=== PATIENT | female | born 1950 | race Caucasian/White ===

== ENCOUNTER 2018-12-16 05:48 | Inpatient (IN) | payer OTHER ==
[2018-12-16] MEDS ORDERED: oxyCODONE HCL 10 MG SUSTAINED ACTING TABLET PO ONE (06:17)
[2018-12-16] MEDS ORDERED: TRANEXAMIC ACID 1000 MG/10 ML VIAL IVPUSH ONE (06:17)
[2018-12-16] MEDS ORDERED: GABAPENTIN 300 MG CAPSULE (FP) PO ONE (06:17)
[2018-12-16] MEDS ORDERED: CEFAZOLIN 1 GM/D5W 1 GM/50 ML BAG IVPB ONE (06:17)
[2018-12-16] MEDS ORDERED: CELECOXIB 200 MG CAPSULE PO ONE (06:17)
[2018-12-16 06:56] VITALS: BMI 22.4
[2018-12-16] MEDS ORDERED: VANCOMYCIN 1,000 MG VIAL (RESTRICTED TO ID ONLY) ONE (07:18)
[2018-12-16] MEDS ORDERED: ceFAZolin SODIUM 1 GM VIAL ONE ×2 (07:18→08:19)
[2018-12-16] MEDS ORDERED: MIDAZOLAM HCL 2 MG/2 ML SINGLE DOSE VIAL ONE ×2 (07:32→07:57)
[2018-12-16] MEDS ORDERED: BUPIVACAINE LIPOSOME/PF (EXPAREL) 266 MG/20 ML VIAL ONE (07:32)
[2018-12-16] MEDS ORDERED: SODIUM CHLORIDE 0.9% P/F 10 ML VIAL IJ ONE (07:33)
[2018-12-16] MEDS ORDERED: BUPIVACAINE HCL/PF (5 MG/ML) 30 ML VIAL IJ ONE (07:33)
[2018-12-16] MEDS ORDERED: PROPOFOL 20 ML ONE ×3 (07:57)
[2018-12-16] MEDS ORDERED: SUCCINYLCHOLINE CHLORIDE 200 MG/10 ML VIAL ONE (07:57)
--- NOTE | 2018-12-16 08:04 | HP ---
Satellite [facility] - Chief Complaint Chief Complaint: right knee pain - Past Medical History Allergies/Adverse Reactions: Allergies Allergy/AdvReac Type Severity Reaction Status Date / Time No Known Drug Allergies Allergy Verified 12/16/18 06:51 - Current Medications Current Medications: Home Medications Medication Instructions Recorded Montelukast Na [Singulair -] 10 mg PO HS 12/10/12 Aspirin [Ecotrin] 81 mg PO DAILY 07/13/14 Alprazolam 0.25 mg PO HS 12/08/18 Ferrous Sulfate [Iron] 1 tab PO DAILY 12/08/18 Fluticasone Prop 0.05% Nasal 1 - 2 spray NS BID 12/08/18 [Flonase -] Fluticasone Propionate [Flovent 250 mcg IH HS 12/08/18 Diskus] Metformin HCl [Glucophage] 500 mg PO DAILY 12/08/18 Satellite Physical Exam - Physical Examination Vital Signs: Vital Signs Period Temp Pulse Resp BP Sys/Izaguirre Pulse Ox Last 24 Hr 98.2 F 64 16 115/66 99 General Appearance: Well Nourished, Well Developed, Alert & Oriented x3 ENT: Clear Lung: Normal air movement Heart: Regular rate & rhythm Extremities: Other (right knee- +swelling, + ttp, decr rom, nvi, xrays show grade 4 tricompartmental djd) Neurological: Intact, Alert, Oriented Satellite Impression/Plan - Impression/Plan Impression: right knee djd Operative Procedure: right sabra tkr Date to be Performed: 12/16/18
[2018-12-16] MEDS ORDERED: ONDANSETRON 4 MG/2 ML VIAL IVPUSH PRN ×2 (08:07→10:16)
[2018-12-16] MEDS ORDERED: MAGNESIUM HYDROX 2400MG/30ML ORAL SUSPENSION 30 ML CUP PO PRN (08:07)
[2018-12-16] MEDS ORDERED: MAG HYDROX/AL HYDROX/SIMETH 30 ML UNIT-DOSE CUP PO PRN (08:07)
[2018-12-16] MEDS ORDERED: ePHEDrine SULFATE 50 MG/1 ML AMPULE ONE (08:14)
[2018-12-16] MEDS ORDERED: LACTATED RINGERS SOLUTION 1,000 ML IV SCH (08:15)
[2018-12-16] MEDS ORDERED: TRANEXAMIC ACID 1000 MG/10 ML VIAL ONE (08:19)
[2018-12-16] MEDS ORDERED: ONDANSETRON 4 MG/2 ML VIAL ONE (08:19)
[2018-12-16] MEDS ORDERED: DEXAMETHASONE SOD PHOSPHATE 4 MG/1 ML VIAL ONE (08:19)
[2018-12-16] MEDS ORDERED: VANCOMYCIN 1,000 MG VIAL (RESTRICTED TO ID ONLY) IVPB ONE (09:25)
[2018-12-16] MEDS ORDERED: FLUTICASONE PROP 0.05% 16 GM NASAL SPRAY NS SCH (10:00)
[2018-12-16] MEDS ORDERED: FERROUS SO4 325 MG TABLET (FP) PO SCH (10:00)
--- NOTE | 2018-12-16 10:04 | OP ---
Operative Note - Note: Operative Date: 12/16/18 (avel) Pre-Operative Diagnosis: right knee djd Operation: right sabra tkr Post-Operative Diagnosis: Same as Pre-op Surgeon: Sebastian [facility] [employer] [facility] Department Chair: Ben Oropeza Anesthesiologist/ATTENDING PATHOLOGIST: Jeremias Leong Anesthesia: Spinal, Local Specimens Removed: bone fragments Estimated Blood Loss (mls): 100 Operative Report Dictated: Yes
[2018-12-16] MEDS ORDERED: PROMETHAZINE HCL 25 MG/1 ML VIAL IVPUSH PRN (10:16)
[2018-12-16] MEDS ORDERED: ACETAMINOPHEN 325 MG TABLET (FP) PO SCH (10:30)
[2018-12-16] MEDS: INSULIN SLIDING SCALE (NOVOLOG) 1 VIAL SQ SCH ×3 (11:00→21:45)
[2018-12-16] MEDS: SENNOSIDES/DOCUSATE COMBO (SENNA PLUS) TABLET (UD) PO SCH ×2 (14:19→21:40)
[2018-12-16] MEDS: PANTOPRAZOLE 40 MG TABLET (FP) PO SCH (14:21)
[2018-12-16] MEDS: MULTIVITAMINS (DAILY MVI) TABLET (FP) PO SCH (14:21)
[2018-12-16] MEDS: CEFAZOLIN 1 GM/D5W 1 GM/50 ML BAG IVPB SCH ×2 (15:57→23:59)
[2018-12-16] MEDS: oxyCODONE HCL 5 MG TABLET PO PRN (16:55)
[2018-12-16] MEDS: ACETAMINOPHEN 325 MG TABLET (FP) PO SCH (17:14)
--- NOTE | 2018-12-16 18:35 | PN ---
Progress Note, Physician Chief Complaint: S/P RIGHT KNE REPLACEMENT JONI H/O ANXIETY D/O, DM, ASTHMA, 0A. AWAKE ALERT NO DISTRESS - Current Medication List Current Medications: Active Medications Acetaminophen (Tylenol -) 650 mg PO Q6H [facility] Stop: 12/19/18 17:59 Last Admin: 12/16/18 17:14 Dose: 650 mg Al Hydroxide/Mg Hydroxide (Mylanta Oral Suspension -) 30 ml PO Q4H PRN PRN Reason: DYSPEPSIA Alprazolam (Xanax -) 0.25 mg PO HS [facility] Aspirin (Asa -) 325 mg PO DAILY@0800 [facility] Fentanyl (Sublimaze Injection -) 50 mcg IVPUSH [id number] PRN PRN Reason: PAIN-PACU ORDER X 4 DOSES ONLY Ferrous Sulfate (Feosol -) 325 mg PO DAILY [facility] Fluticasone Propionate (Flonase -) 1 - 2 spray NS BID [facility] Cefazolin Sodium (Ancef 1 Gm Premixed Ivpb -) 1 gm in 50 mls @ 100 mls/hr IVPB Q8H [facility] Stop: 12/17/18 00:29 Last Admin: 12/16/18 15:57 Dose: 100 mls/hr Lactated Ringer's (Lactated Ringers Solution) 1,000 mls @ 125 mls/hr IV ASDIR [facility] Stop: 12/17/18 06:00 Last Admin: 12/16/18 14:19 Dose: Not Given Insulin Aspart (Novolog Vial Sliding Scale -) 1 vial SQ [facility]; Protocol Last Admin: 12/16/18 17:13 Dose: 4 units Magnesium Hydroxide (Milk Of Magnesia -) 30 ml PO PRN PRN PRN Reason: CONSTIPATION Metformin HCl (Glucophage -) 500 mg PO ACBK [facility] Mometasone Furoate (Asmanex 220mcg -) 1 puff IH HS [facility] Montelukast Sodium (Singulair -) 10 mg PO HS [facility] Multivitamins/Minerals/Vitamin C (Tab-A-Vit -) 1 tab PO DAILY [facility] Last Admin: 12/16/18 14:21 Dose: Not Given Ondansetron HCl (Zofran Injection) 4 mg IVPUSH Q6H PRN PRN Reason: NAUSEA Ondansetron HCl (Zofran Injection) 4 mg IVPUSH Q6H PRN PRN Reason: NAUSEA AND/OR VOMITING Oxycodone HCl (Roxicodone -) 5 mg PO Q3H PRN PRN Reason: PAIN LEVEL 1-5 Oxycodone HCl (Roxicodone -) 10 mg PO Q3H PRN PRN Reason: PAIN LEVEL 6-10 Last Admin: 12/16/18 16:55 Dose: 10 mg Oxycodone HCl (Oxycontin -) 10 mg PO BID [facility] Stop: 12/19/18 10:17 Pantoprazole Sodium (Protonix -) 40 mg PO DAILY [facility] Last Admin: 12/16/18 14:21 Dose: Not Given Promethazine HCl (Phenergan Injection -) 12.5 mg IVPUSH Q6H PRN PRN Reason: NAUSEA-FOR RESCUE AFTER 15 MIN Senna/Docusate Sodium (Pericolace -) 2 tablet PO BID [facility] Last Admin: 12/16/18 14:19 Dose: Not Given - Objective Vital Signs: Vital Signs Temperature 97.7 F 12/16/18 12:00 Pulse Rate 83 12/16/18 12:00 Respiratory Rate 18 12/16/18 12:00 Blood Pressure 108/62 12/16/18 12:00 O2 Sat by Pulse Oximetry (%) 94 L 12/16/18 12:00 Constitutional: Yes: No Distress Eyes: Yes: WNL HENT: Yes: WNL Neck: Yes: WNL Cardiovascular: Yes: Regular Rate and Rhythm Respiratory: Yes: WNL Gastrointestinal: Yes: WNL Genitourinary: Yes: Other Musculoskeletal: Yes: Other Extremities: Yes: Other Peripheral Pulses WNL: Yes Integumentary: Yes: Other Wound/Incision: Yes: Dressing Dry and Intact (DRESSING RIGHT KNEE CLEAN NO DISCHARGE OR BLEED) ...Motor Strength: RLE Psychiatric: Yes: WNL Problem List - Problems (1) Asthma Code(s): J45.909 - UNSPECIFIED ASTHMA, UNCOMPLICATED (2) Hypertension Code(s): I10 - ESSENTIAL (PRIMARY) HYPERTENSION (3) Diabetes mellitus Code(s): E11.9 - TYPE 2 DIABETES MELLITUS WITHOUT COMPLICATIONS (4) Osteoarthritis Code(s): M19.90 - UNSPECIFIED OSTEOARTHRITIS, UNSPECIFIED SITE (5) Status post total right knee replacement Code(s): Z96.651 - PRESENCE OF RIGHT ARTIFICIAL KNEE JOINT Assessment/Plan S/P RIGHT KNEE REPLACEMENT JONI PAIN CONTROL DVT PROPHYLAXIS PT/ORTHOPEDIC F/U NON-WEIGHT BEARING UNTIL CLEARED BY ORTHOPEDICS. NEBS/02 SUPPORT STABLE ASTHMA BGM CHECKS CHECK LABS
[2018-12-16] MEDS ORDERED: ALBUTEROL SO4 2.5/IPRATROPIUM 0.5 INH SOL 3 ML VIAL.NEB. NEB PRN (18:43)
[2018-12-16] MEDS ORDERED: PT OWN MED DRAWER 7, Y5N ONE (21:18)
--- NOTE | 2018-12-16 21:32 | SPEC ---
DATE OF OPERATION: 12/16/2018 PREOPERATIVE DIAGNOSIS: Degenerative joint disease, right knee. POSTOPERATIVE DIAGNOSIS: Degenerative joint disease, right knee. PROCEDURE: Right total knee replacement with robotic-assisted navigation (Makoplasty). SURGICAL ATTENDING: Sebastian Solis M.D. SSIS DEVELOPER: Evelina Villarreal ANESTHESIA: Regional and spinal. CLOSURE: A Triathlon cemented knee system with a 3 femur, 3 tibia, 13 polyethylene, 29 patella, number 1 Vicryl fascia, 0 and 2-0 subcutaneous, 3-0 Monocryl subcuticular with skin glue for skin, 4-0 undyed Vicryl for pin sites. ESTIMATED BLOOD LOSS: Less than 100 mL. COMPLICATIONS: None. CONDITION: To recovery room in stable condition. DESCRIPTION OF OPERATIVE PROCEDURE: Patient was taken to the operating room on December 16, 2018. Regional and general anesthesia was administered by the anesthesiologist. IV Kefzol and TXA were administered by the anesthesiologist. Well-padded pneumatic tourniquet was placed on the proximal thigh. The right lower extremity was prepped and draped in the usual sterile fashion. The leg was exsanguinated with an Esmarch bandage, and tourniquet was inflated to 275 mmHg. A 12 to 15-cm longitudinal midline incision was incised while centered over the patella. The dissection was carried down to the level of the extensor mechanism with sufficient flaps made to adequately perform the procedure. A medial parapatellar arthrotomy was then performed. We made a cuff of tissue on the patella for later closure. The patella was inverted, the knee was flexed up. The fat pad was excised. The subperiosteal dissection was on the anteromedial proximal tibia around towards the direction of the MCL. The ACL and the PCL were transected and debrided. The meniscal remnants of the medial and lateral meniscus were debrided and removed. This allowed the knee to be able to "be brought forward." The checkpoints were malleted into the tibia and into the femur. Two threaded pins were drilled anteroposteriorly proximal to the knee through the previous incision, through the anterior cortex, then just engaging the posterior cortex. To these pins was assembled the femoral navigation array. One handbreadth below the tibial tubercle, 2 stab incisions were used to drill 2 threaded pins in parallel fashion into the tibia, again through the anterior cortex and just engaging the posterior cortex. To these pins was fastened the tibial arrays. The knee was then registered with the navigation device with center of rotation of the hip, medial and lateral malleoli, both checkpoints, and multiple points on both the femur and the tibia to ensure excellent registration. The navigation device was directed off the "pop of the bubbles" on both the femur and the tibia. The navigation passed within less than 0.5 mm to plan. The knee was then thoroughly inspected to remove all osteophytes both medially, laterally, and on the femur and the tibia, and whatever osteophytes were available for dissection. The knee was then taken to extension and to flexion, and stressed in both varus and valgus to assess flexion gaps. The virtual position of the components on the navigation device were then manipulated to optimize the position and to ensure equal gaps in both flexion and extension, and both medially and laterally. The robot was then brought into the field and was registered. The cuts were then made both on the femur and on the tibia as to plan. All osteophytes posteriorly were then removed as well. The gaps were then measured again in flexion and extension to be equal in both flexion and extension and medial and laterally. The femoral notch was then made, as we were doing a posterior stabilizing component, with the appropriate sized box. Trial reduction of the femur achieved excellent [id number] fit. A tibial baseplate of appropriate polyethylene thickness was "floated in the knee." It was ensured to be in the excellent position by navigation devices and was pinned in place. The knee was taken through a range of motion, and found to have excellent stability throughout flexion and extension. The patella was calibrated for thickness and osteotomized down to the appropriate level. The appropriate lollipop was used to drill the lug holes in the patella and the trial button was applied. The knee was taken through a range of motion and found to have excellent tracking of the patella, and patella from full extension to full flexion. Trial components were removed, the keel was punched and drilled, and a sclerotic bone on the tibia was drilled to help with cement interdigitation. The knee was thoroughly irrigated with the pulse antibiotic derrick builder. The real components were then cemented in using monitored arrangement cement techniques with antibiotic cement, and pressurization and extension. After the cement was hardened, the knee was thoroughly inspected to remove any extra cement. The real polyethylene component was then clipped into place. Range of motion, stability, and tracking were as described earlier. The checkpoints and the pins were removed. The knee was thoroughly irrigated with antibiotic irrigation. Vancomycin powder was placed into the knee for antibiotic prophylaxis. The medial parapatellar arthrotomy was then closed using number 1 Vicryl interrupted suture. After closure of the deep layer, the knee was taken through a range of motion, and found to have excellent stability of the patella with no dislocation and no undue tension on the repair. The subcutaneous was pulse antibiotic irrigated, and was then closed with 2-0 Vicryl, 3-0 Monocryl subcuticular with the skin glue for the skin. The distal tibial pin site was irrigated thoroughly as well and then closed with 4-0 undyed Vicryl. A sterile Aquacel dressing was applied, followed by a Mckenzie dressing. Tourniquet was deflated. Total tourniquet time was approximately 75 minutes. No complications. Patient was awakened from anesthesia and transferred to recovery room in stable condition. Postoperative x-rays revealed excellent position of the components. Maura WORKMAN/[id number]
[2018-12-16] MEDS: MONTELUKAST NA 10 MG TABLET PO SCH (21:39)
[2018-12-16] MEDS: ALPRAZolam 0.25 MG TABLET PO SCH (21:40)
[2018-12-16] MEDS: oxyCODONE HCL 10 MG SUSTAINED ACTING TABLET PO SCH (21:40)
[2018-12-16] MEDS: FLUTICASONE PROP 0.05% 16 GM NASAL SPRAY NS SCH (21:42)
[2018-12-16] MEDS: MOMETASONE FUROATE 220 MCG/IH INHALER IH SCH (21:43)
[2018-12-16] MEDS ORDERED: PATIENT'S OWN MEDICATION (NON-FORMULARY) (Fluticasone Propionate [Flovent Diskus] 250 MCG) IH SCH (22:00)
[2018-12-17] MEDS: ACETAMINOPHEN 325 MG TABLET (FP) PO SCH ×5 (00:05→23:10)
[2018-12-17] MEDS: oxyCODONE HCL 5 MG TABLET PO PRN ×4 (06:58→19:51)
[2018-12-17] MEDS: INSULIN SLIDING SCALE (NOVOLOG) 1 VIAL SQ SCH ×4 (07:06→21:38)
[2018-12-17] MEDS: metFORMIN HCL 500 MG TABLET (FP) PO SCH (07:06)
[2018-12-17 07:52] LABS: HEMATOCRIT 35.5 % (32.4-45.2); HEMOGLOBIN 11.8 GM/dl (10.7-15.3); MCHC 33.3 g/dl (32.0-36.0); MEAN CELL VOLUME 96.2 fl (80-96); MEAN PLT VOLUME 9.3 fl (7.5-11.1); PLATELET COUNT 264 K/MM3 (134-434); RBC 3.69 M/mm3 (3.60-5.2); RDW 12.6 % (11.6-15.6); WHITE BLOOD COUNT 11.2 K/mm3 (4.0-10.8)
--- NOTE | 2018-12-17 08:03 | PN ---
Progress Note, Physician - Current Medication List Current Medications: Active Medications Acetaminophen (Tylenol -) 650 mg PO Q6H [facility] Stop: 12/19/18 17:59 Last Admin: 12/17/18 06:58 Dose: 650 mg Al Hydroxide/Mg Hydroxide (Mylanta Oral Suspension -) 30 ml PO Q4H PRN PRN Reason: DYSPEPSIA Albuterol/Ipratropium (Duoneb -) 1 amp NEB Q6H PRN PRN Reason: SHORTNESS OF BREATH Alprazolam (Xanax -) 0.25 mg PO [facility] Last Admin: 12/16/18 21:40 Dose: 0.25 mg Aspirin (Asa -) 325 mg PO DAILY@0800 [facility] Fentanyl (Sublimaze Injection -) 50 mcg IVPUSH [id number] PRN PRN Reason: PAIN-PACU ORDER X 4 DOSES ONLY Ferrous Sulfate (Feosol -) 325 mg PO DAILY [facility] Fluticasone Propionate (Flonase -) 1 - 2 spray NS BID [facility] Last Admin: 12/16/18 21:42 Dose: 2 spray Insulin Aspart (Novolog Vial Sliding Scale -) 1 vial SQ [facility]; Protocol Last Admin: 12/17/18 07:06 Dose: Not Given Magnesium Hydroxide (Milk Of Magnesia -) 30 ml PO PRN PRN PRN Reason: CONSTIPATION Metformin HCl (Glucophage -) 500 mg PO ACBK [facility] Last Admin: 12/17/18 07:06 Dose: 500 mg Mometasone Furoate (Asmanex 220mcg -) 1 puff IH [facility] Last Admin: 12/16/18 21:43 Dose: 1 puff Montelukast Sodium (Singulair -) 10 mg PO [facility] Last Admin: 12/16/18 21:39 Dose: 10 mg Multivitamins/Minerals/Vitamin C (Tab-A-Vit -) 1 tab PO DAILY [facility] Last Admin: 12/16/18 14:21 Dose: Not Given Ondansetron HCl (Zofran Injection) 4 mg IVPUSH Q6H PRN PRN Reason: NAUSEA Ondansetron HCl (Zofran Injection) 4 mg IVPUSH Q6H PRN PRN Reason: NAUSEA AND/OR VOMITING Oxycodone HCl (Roxicodone -) 5 mg PO Q3H PRN PRN Reason: PAIN LEVEL 1-5 Oxycodone HCl (Roxicodone -) 10 mg PO Q3H PRN PRN Reason: PAIN LEVEL 6-10 Last Admin: 12/17/18 06:58 Dose: 10 mg Oxycodone HCl (Oxycontin -) 10 mg PO BID [facility] Stop: 12/19/18 10:17 Last Admin: 12/16/18 21:40 Dose: 10 mg Pantoprazole Sodium (Protonix -) 40 mg PO DAILY [facility] Last Admin: 12/16/18 14:21 Dose: Not Given Promethazine HCl (Phenergan Injection -) 12.5 mg IVPUSH Q6H PRN PRN Reason: NAUSEA-FOR RESCUE AFTER 15 MIN Senna/Docusate Sodium (Pericolace -) 2 tablet PO BID [facility] Last Admin: 12/16/18 21:40 Dose: 2 tablet - Objective Vital Signs: Vital Signs Temperature 97.9 F 12/17/18 04:00 Pulse Rate 65 12/17/18 04:00 Respiratory Rate 12/17/18 04:00 Blood Pressure 115/53 L 12/17/18 04:00 O2 Sat by Pulse Oximetry (%) 96 12/17/18 06:38 Cardiovascular: Yes: Regular Rate and Rhythm Respiratory: Yes: Regular, CTA Bilaterally Gastrointestinal: Yes: Normal Bowel Sounds, Soft Wound/Incision: Yes: Dressing Dry and Intact Problem List - Problems (1) Asthma Assessment/Plan: controlled Code(s): J45.909 - UNSPECIFIED ASTHMA, UNCOMPLICATED (2) Diabetes mellitus Assessment/Plan: same meds monitor Code(s): E11.9 - TYPE 2 DIABETES MELLITUS WITHOUT COMPLICATIONS (3) Hypertension Assessment/Plan: same meds Vital Signs Period Temp Pulse Resp BP Sys/Izaguirre Pulse Ox Last 24 Hr 97.5 F-98.4 F 65-83 12-19 93-115/50-62 94-98 Code(s): I10 - ESSENTIAL (PRIMARY) HYPERTENSION (4) Status post total right knee replacement Assessment/Plan: per ortho pain control Code(s): Z96.651 - PRESENCE OF RIGHT ARTIFICIAL KNEE JOINT
[2018-12-17 08:19] LABS: ALBUMIN 3.2 g/dl (3.4-5.0); BILIRUBIN,TOTAL 0.8 mg/dl (0.2-1); CALCIUM 9.2 mg/dl (8.5-10); CREATININE 0.5 mg/dl (0.55-1.3); MAGNESIUM 2.1 mg/dL (1.8-2.4); PHOSPHOROUS 3.8 mg/dl (2.5-4.9); POTASSIUM 4.3 mmol/L (3.5-5.1); TOT PROT 5.7 g/dl (6.4-8.2)
[2018-12-17] MEDS ORDERED: PT OWN MED DRAWER 7, Y5N ONE (09:47)
[2018-12-17] MEDS: ASPIRIN 325 MG TABLET PO SCH (09:56)
[2018-12-17] MEDS: MULTIVITAMINS (DAILY MVI) TABLET (FP) PO SCH (09:59)
[2018-12-17] MEDS: SENNOSIDES/DOCUSATE COMBO (SENNA PLUS) TABLET (UD) PO SCH ×2 (09:59→21:34)
[2018-12-17] MEDS: FERROUS SO4 325 MG TABLET (FP) PO SCH (09:59)
[2018-12-17] MEDS: PANTOPRAZOLE 40 MG TABLET (FP) PO SCH (09:59)
[2018-12-17] MEDS: FLUTICASONE PROP 0.05% 16 GM NASAL SPRAY NS SCH ×2 (10:00→21:38)
[2018-12-17] MEDS: oxyCODONE HCL 10 MG SUSTAINED ACTING TABLET PO SCH ×2 (10:01→21:34)
--- NOTE | 2018-12-17 10:26 | PN ---
Progress Note (short form) - Note Progress Note: Ortho Pt seen and examined s/p right sabra tkr pod #1 Selected Entries 12/17/18 09:36 Temperature 97.8 F Pulse Rate 79 Respiratory 20 Rate Blood Pressure 102/55 L Laboratory Tests 12/17/18 07:20 WBC 11.2 H Hgb 11.8 Hct 35.5 Plt Count 264 dressing c/d/i, calf soft, nt rom 0-40, nvi a/p PT dvt ppx pain control d/c planning for rehab
--- NOTE | 2018-12-17 14:12 | PN ---
Progress Note (short form) - Note Progress Note: Anesthesia post op/Pain Pt seen and examined S:Alert and awake O: Vital Signs Temperature 97.8 F 12/17/18 09:36 Pulse Rate 79 12/17/18 09:36 Respiratory Rate 20 12/17/18 09:36 Blood Pressure 102/55 L 12/17/18 09:36 O2 Sat by Pulse Oximetry (%) 96 12/17/18 09:36 CBC, BMP 12/17/18 07:20 12/17/18 07:20 A/P: Current Active Problems Asthma (Acute) Diabetes mellitus (Acute) Hypertension (Acute) Osteoarthritis (Acute) Status post total right knee replacement (Acute) Doing well post op Continue current care Geovani García MD
[2018-12-17] MEDS: MONTELUKAST NA 10 MG TABLET PO SCH (21:34)
[2018-12-17] MEDS: ALPRAZolam 0.25 MG TABLET PO SCH (21:34)
[2018-12-17] MEDS: MOMETASONE FUROATE 220 MCG/IH INHALER IH SCH (21:38)
[2018-12-18] MEDS: INSULIN SLIDING SCALE (NOVOLOG) 1 VIAL SQ SCH ×3 (06:34→17:12)
[2018-12-18] MEDS: oxyCODONE HCL 5 MG TABLET PO PRN ×2 (06:39→21:50)
[2018-12-18] MEDS: ACETAMINOPHEN 325 MG TABLET (FP) PO SCH ×3 (06:40→18:06)
[2018-12-18] MEDS: metFORMIN HCL 500 MG TABLET (FP) PO SCH (06:40)
--- NOTE | 2018-12-18 07:44 | PN ---
Progress Note, Physician - Current Medication List Current Medications: Active Medications Acetaminophen (Tylenol -) 650 mg PO Q6H [facility] Stop: 12/19/18 17:59 Last Admin: 12/18/18 06:40 Dose: 650 mg Al Hydroxide/Mg Hydroxide (Mylanta Oral Suspension -) 30 ml PO Q4H PRN PRN Reason: DYSPEPSIA Albuterol/Ipratropium (Duoneb -) 1 amp NEB Q6H PRN PRN Reason: SHORTNESS OF BREATH Alprazolam (Xanax -) 0.25 mg PO [facility] Last Admin: 12/17/18 21:34 Dose: 0.25 mg Aspirin (Asa -) 325 mg PO DAILY@0800 [facility] Last Admin: 12/17/18 09:56 Dose: 325 mg Fentanyl (Sublimaze Injection -) 50 mcg IVPUSH [id number] PRN PRN Reason: PAIN-PACU ORDER X 4 DOSES ONLY Ferrous Sulfate (Feosol -) 325 mg PO DAILY [facility] Last Admin: 12/17/18 09:59 Dose: 325 mg Fluticasone Propionate (Flonase -) 1 - 2 spray NS BID [facility] Last Admin: 12/17/18 21:38 Dose: 2 spray Insulin Aspart (Novolog Vial Sliding Scale -) 1 vial SQ [facility]; Protocol Last Admin: 12/18/18 06:34 Dose: Not Given Magnesium Hydroxide (Milk Of Magnesia -) 30 ml PO PRN PRN PRN Reason: CONSTIPATION Metformin HCl (Glucophage -) 500 mg PO ACBK [facility] Last Admin: 12/18/18 06:40 Dose: 500 mg Mometasone Furoate (Asmanex 220mcg -) 1 puff IH [facility] Last Admin: 12/17/18 21:38 Dose: 1 puff Montelukast Sodium (Singulair -) 10 mg PO [facility] Last Admin: 12/17/18 21:34 Dose: 10 mg Multivitamins/Minerals/Vitamin C (Tab-A-Vit -) 1 tab PO DAILY [facility] Last Admin: 12/17/18 09:59 Dose: 1 tab Ondansetron HCl (Zofran Injection) 4 mg IVPUSH Q6H PRN PRN Reason: NAUSEA Ondansetron HCl (Zofran Injection) 4 mg IVPUSH Q6H PRN PRN Reason: NAUSEA AND/OR VOMITING Oxycodone HCl (Roxicodone -) 5 mg PO Q3H PRN PRN Reason: PAIN LEVEL 1-5 Last Admin: 12/17/18 13:40 Dose: 5 mg Oxycodone HCl (Roxicodone -) 10 mg PO Q3H PRN PRN Reason: PAIN LEVEL 6-10 Last Admin: 12/18/18 06:39 Dose: 10 mg Oxycodone HCl (Oxycontin -) 10 mg PO BID [facility] Stop: 12/19/18 10:17 Last Admin: 12/17/18 21:34 Dose: 10 mg Pantoprazole Sodium (Protonix -) 40 mg PO DAILY [facility] Last Admin: 12/17/18 09:59 Dose: 40 mg Promethazine HCl (Phenergan Injection -) 12.5 mg IVPUSH Q6H PRN PRN Reason: NAUSEA-FOR RESCUE AFTER 15 MIN Senna/Docusate Sodium (Pericolace -) 2 tablet PO BID [facility] Last Admin: 12/17/18 21:34 Dose: 2 tablet - Objective Vital Signs: Vital Signs Temperature 99.1 F 12/18/18 06:34 Pulse Rate 85 12/18/18 06:34 Respiratory Rate 18 12/18/18 06:34 Blood Pressure 104/57 L 12/18/18 06:34 O2 Sat by Pulse Oximetry (%) 97 12/18/18 06:34 Cardiovascular: Yes: Regular Rate and Rhythm Respiratory: Yes: Regular, CTA Bilaterally Gastrointestinal: Yes: Normal Bowel Sounds, Soft Wound/Incision: Yes: Dressing Dry and Intact Labs: CBC, BMP 12/17/18 07:20 Problem List - Problems (1) Asthma Assessment/Plan: controlled Code(s): J45.909 - UNSPECIFIED ASTHMA, UNCOMPLICATED (2) Diabetes mellitus Assessment/Plan: same meds monitor Code(s): E11.9 - TYPE 2 DIABETES MELLITUS WITHOUT COMPLICATIONS (3) Hypertension Assessment/Plan: same meds Vital Signs Period Temp Pulse Resp BP Sys/Izaguirre Pulse Ox Last 24 Hr 97.5 F-98.4 F 65-83 12-19 93-115/50-62 94-98 Code(s): I10 - ESSENTIAL (PRIMARY) HYPERTENSION (4) Status post total right knee replacement Assessment/Plan: per ortho pain control one dose of celebrex Code(s): Z96.651 - PRESENCE OF RIGHT ARTIFICIAL KNEE JOINT
[2018-12-18 08:07] LABS: HEMATOCRIT 35.4 % (32.4-45.2); MCH 32.6 pg (25.7-33.7); MEAN PLT VOLUME 9.8 fl (7.5-11.1); PLATELET COUNT 243 K/MM3 (134-434); RBC 3.69 M/mm3 (3.60-5.2); RDW 12.6 % (11.6-15.6); WHITE BLOOD COUNT 9.8 K/mm3 (4.0-10.8)
--- NOTE | 2018-12-18 08:24 | PN ---
Progress Note (short form) - Note Progress Note: Ortho Pt seen and examined s/p right sabra tkr pod #2 Selected Entries 12/18/18 06:34 Temperature 99.1 F Pulse Rate 85 Respiratory 18 Rate Blood Pressure 104/57 L Laboratory Tests 12/18/18 07:05 WBC 9.8 Hgb 12.0 Hct 35.4 Plt Count 243 dressing c/d/i, calf soft, nt rom 0-60, nvi a/p PT dvt ppx pain control d/c planning for rehab
[2018-12-18] MEDS: ASPIRIN 325 MG TABLET PO SCH (08:30)
[2018-12-18] MEDS ORDERED: CELECOXIB 200 MG CAPSULE PO ONE (09:30)
[2018-12-18] MEDS: FERROUS SO4 325 MG TABLET (FP) PO SCH (09:42)
[2018-12-18] MEDS: SENNOSIDES/DOCUSATE COMBO (SENNA PLUS) TABLET (UD) PO SCH ×2 (09:43→21:52)
[2018-12-18] MEDS: FLUTICASONE PROP 0.05% 16 GM NASAL SPRAY NS SCH ×2 (09:43→21:53)
[2018-12-18] MEDS: PANTOPRAZOLE 40 MG TABLET (FP) PO SCH (09:43)
[2018-12-18] MEDS: MULTIVITAMINS (DAILY MVI) TABLET (FP) PO SCH (09:43)
[2018-12-18] MEDS: oxyCODONE HCL 10 MG SUSTAINED ACTING TABLET PO SCH ×2 (10:15→21:51)
[2018-12-18] MEDS: ALPRAZolam 0.25 MG TABLET PO SCH (21:51)
[2018-12-18] MEDS: MONTELUKAST NA 10 MG TABLET PO SCH (21:52)
[2018-12-18] MEDS: MOMETASONE FUROATE 220 MCG/IH INHALER IH SCH (21:53)
[2018-12-19] MEDS: INSULIN SLIDING SCALE (NOVOLOG) 1 VIAL SQ SCH ×3 (01:31→13:34)
[2018-12-19] MEDS: ACETAMINOPHEN 325 MG TABLET (FP) PO SCH ×2 (01:32→06:51)
[2018-12-19] MEDS: metFORMIN HCL 500 MG TABLET (FP) PO SCH (06:51)
[2018-12-19] MEDS ORDERED: PT OWN MED DRAWER 7, Y5N ONE ×2 (08:38→09:34)
--- NOTE | 2018-12-19 08:54 | DS ---
Physical Examination Vital Signs: Vital Signs Temperature 99.4 F 12/19/18 06:27 Pulse Rate 83 12/19/18 06:27 Respiratory Rate 16 12/19/18 08:21 Blood Pressure 97/56 L 12/19/18 06:27 O2 Sat by Pulse Oximetry (%) 98 12/19/18 08:21 Cardiovascular: Yes: Regular Rate and Rhythm Respiratory: Yes: Regular, CTA Bilaterally Gastrointestinal: Yes: Normal Bowel Sounds, Soft Labs: CBC, BMP 12/18/18 07:05 12/17/18 07:20 Discharge Summary Reason For Visit: OSTEOARTHRITIS Current Active Problems Asthma (Acute) Diabetes mellitus (Acute) Hypertension (Acute) Osteoarthritis (Acute) Status post total right knee replacement (Acute) Hospital Course: Problems (1) Asthma Assessment/Plan: controlled Code(s): J45.909 - UNSPECIFIED ASTHMA, UNCOMPLICATED (2) Diabetes mellitus Assessment/Plan: same meds monitor Code(s): E11.9 - TYPE 2 DIABETES MELLITUS WITHOUT COMPLICATIONS (3) Hypertension Assessment/Plan: low will monitor Vital Signs Period Temp Pulse Resp BP Sys/Izaguirre Pulse Ox Last 24 Hr 97.5 F-98.4 F 65-83 12-19 93-115/50-62 94-98 Code(s): I10 - ESSENTIAL (PRIMARY) HYPERTENSION (4) Status post total right knee replacement Assessment/Plan: per ortho pain control one dose of celebrex Code(s): Z96.651 - PRESENCE OF RIGHT ARTIFICIAL KNEE JOINT Condition: Good - Instructions Diet, Activity, Other Instructions: Post-op Instructions-Total Knee Replacement Call the office for a follow-up appointment in 1 week - [phone] Aspirin 325mg daily for 6 weeks. Pain medication was sent into your pharmacy. Apply Graduated Compression Stockings (TEDs) to both lower extremities- remove daily for hygiene ONLY Apply Sequential Compression Device (SCDs) to both Lower extremities remove for PT and hygiene ONLY Apply cold packs to affected area for 15 minutes every 2 hours. Physical Therapist will come to your home for the first 5 days. You will be set up with outpatient PT at your first post-operative visit. Patient may ambulate as tolerated-encourage self care (at least every 2-3 hours while awake) with walker or cane Maintain Aquacel (waterproof) dressing to operative wound (will be removed by surgeon at first office visit) Shower with Aquacel dressing in place-if Aquacel integrity compromised, remove and apply dry sterile dressing and notify Orthopedist. DO NOT SHOWER unless Orthopedists approves without Aquacel dressing CONTACT THE OFFICE FOR ANY CHANGE IN YOUR CONDITION (for example-fever greater than 102 degrees, excessive bleeding from operative site, purulent drainage, severe swelling or pain) GO TO THE EMERGENCY ROOM IF THERE IS A MEDICAL EMERGENCY Knee Precautions: * Keep a rolled towel under affected heel while in bed or chair (to keep knee in extension) * Keep affected leg elevated except during mealtimes * DO NOT PLACE PILLOW UNDER AFFECTED KNEE * If you have any questions, please do not hesitate to call the office - [phone]. Referrals: Sebastian Solis MD [Staff Physician] - Disposition: VNS/HOME HEALTH CARE - Home Medications Comprehensive Discharge Medication List: Ambulatory Orders Montelukast Na [Singulair -] 10 mg PO HS 12/10/12 Alprazolam 0.25 mg PO HS 12/08/18 Ferrous Sulfate [Iron] 1 tab PO DAILY 12/08/18 Fluticasone Prop 0.05% Nasal [Flonase -] 1 - 2 spray NS BID 12/08/18 Fluticasone Propionate [Flovent Diskus] 250 mcg IH HS 12/08/18 Metformin HCl [Glucophage] 500 mg PO DAILY 12/08/18 Aspirin [ASA -] 325 mg PO DAILY@0800 tablet 12/16/18 Oxycodone HCl/Acetaminophen [Percocet 5-325 mg Tablet -] 1 - 2 tab PO Q6H #50 tab MDD 8 12/16/18
[2018-12-19] MEDS: ASPIRIN 325 MG TABLET PO SCH (08:58)
[2018-12-19] MEDS: oxyCODONE HCL 5 MG TABLET PO PRN (08:58)
[2018-12-19] MEDS: FERROUS SO4 325 MG TABLET (FP) PO SCH (09:50)
[2018-12-19] MEDS: oxyCODONE HCL 10 MG SUSTAINED ACTING TABLET PO SCH (09:50)
[2018-12-19] MEDS: PANTOPRAZOLE 40 MG TABLET (FP) PO SCH (09:50)
[2018-12-19] MEDS: SENNOSIDES/DOCUSATE COMBO (SENNA PLUS) TABLET (UD) PO SCH (09:50)
[2018-12-19] MEDS: MULTIVITAMINS (DAILY MVI) TABLET (FP) PO SCH (09:50)
[2018-12-19] MEDS: FLUTICASONE PROP 0.05% 16 GM NASAL SPRAY NS SCH (10:00)
[2018-12-19 10:04] LABS: BASO % 0.4 % (0-2.0); EOS % 1.7 % (0-4.5); HEMATOCRIT 35.4 % (32.4-45.2); HEMOGLOBIN 11.8 GM/dl (10.7-15.3); LYMPH % 16.4 % (8-40); MCHC 33.4 g/dl (32.0-36.0); MEAN CELL VOLUME 95.8 fl (80-96); MEAN PLT VOLUME 9.5 fl (7.5-11.1); MONO % 8.3 % (3.8-10.2); NEUT % 73.2 % (42.8-82.8); PLATELET COUNT 271 K/MM3 (134-434); RDW 12.8 % (11.6-15.6); WHITE BLOOD COUNT 9.9 K/mm3 (4.0-10.8)
[2018-12-19 10:11] LABS: CALCIUM 8.8 mg/dl (8.5-10); CREATININE 0.6 mg/dl (0.55-1.3); POTASSIUM 4.1 mmol/L (3.5-5.1)
[2018-12-19 11:11] VITALS: BP 93/52
[2018-12-19 11:28] VITALS: PULSE 64; TEMP 98.7
--- NOTE | 2018-12-19 12:41 | PN ---
Progress Note (short form) - Note Progress Note: Ortho Pt seen and examined s/p right sabra tkr pod #3 Selected Entries 12/19/18 11:26 Temperature 98.7 F Pulse Rate 64 Respiratory 16 Rate Blood Pressure 93/52 L Laboratory Tests 12/19/18 09:49 WBC 9.9 Hgb 11.8 Hct 35.4 Plt Count 271 dressing c/d/i, calf soft, nt rom 0-60, nvi a/p PT dvt ppx pain control d/c to rehab today
--- NOTE | 2018-12-19 16:04 | PATH ---
Surgical Pathology Report Patient Name: REBEL DURAN Med. Rec. #: [id number] /Age/Gender: 1950 (Age: 68) / F Account: [id number] Location: [facility] MED-SURG Taken: 12/16/2018 Received: 12/16/2018 Reported: 12/19/2018 Physicians: Sebastian Solis M.D. Specimen(s) Received RIGHT KNEE BONES Clinical History Right knee osteoarthritis Final Diagnosis KNEE BONES, RIGHT, TOTAL KNEE REPLACEMENT: DEGENERATIVE JOINT DISEASE. Electronically Signed Demetra Soto M.D. Gross Description Received in formalin labeled "right knee bones," is a 12.0 x 10.0 x 1.5 cm aggregate of multiple portions of bone and soft tissue. The tibial plateau measures 7.5 x 4.5 x 1.3 cm. There are multiple areas of eburnation present, measuring up to 2.0 cm in greatest dimension. The remaining articular surfaces are gonzales-yellow and focally granular. The underlying trabecular bone is yellow and hard. Coach Mechanic sections are submitted in one cassette, following decalcification. /12/17/2018 saudi12/17/2018
== END 2018-12-19 13:25 | disposition home or self-care (01) | DRG 470 ==
LOC: FM/S 05:48
PROVIDERS: ADMIT Orthopaedic Surgery; ATTEND Orthopaedic Surgery
PROC: 8E0Y0CZ Robotic Assisted Procedure of Lower Extremity, Open Approach (ICD-10-PCS; 2018-12-16)
PROC: 0SRC0J9 Replacement of Right Knee Joint with Synthetic Substitute, Cemented, Open Approach (ICD-10-PCS; principal; 2018-12-16 08:26)
DX: M17.11 Unilateral primary osteoarthritis, right knee (principal); I10 Essential (primary) hypertension; J45.909 Unspecified asthma, uncomplicated; E11.9 Type 2 diabetes mellitus without complications
CPT/HCPCS: 36415; 73560-TC-RT-FY; 80048; 80053; 82962; 83735; 84100; 85025; 85027; 88304-TC; 88311-TC; 94760; 97116-GP; 97163-GP